=== PATIENT | male | born 1970 | race African-American/Black ===

== ENCOUNTER 2021-02-03 07:01 | Emergency (ER) | payer MEDICAID ==
[~2021-02-03] VITALS: Ht 170.2 cm; Wt 75.0 kg
[~2021-02-03 07:01] MED LIST: ALPR0.5T PO
[2021-02-03] MEDS ORDERED: SODIUM CHLORIDE 0.9% 1,000 ML IV ONE (08:45)
[2021-02-03 09:18] LABS: CHLORIDE 108 mEq/L (98-107)
[2021-02-03 09:22] LABS: HEMATOCRIT. 46.2 % (42.0-52.0); HEMOGLOBIN. 15.7 g/dL (14.0-18.0); MEAN CORPUSCULAR HEMOGLOBIN 30.6 pg (28.0-32.0); MEAN PLATELET VOLUME 10.1 fl (7.4-10.4); PLATELET 306 x1000/uL (130-400); RED BLOOD CELL COUNT 5.13 mill/uL (4.7-6.1); RED CELL DISTRIBUTION WIDTH 13.5 % (11.6-14.6)
[2021-02-03 09:23] LABS: ETHANOL BLOOD < 10 mg/dL
[2021-02-03 10:15] LABS: *BARBITURATES SCREEN URINE NEGATIVE (NEGATIVE)
[2021-02-03 10:16] LABS: *AMPHETAMINES SCREEN URINE NEGATIVE (NEGATIVE); *BENZODIAZEPINES SCREEN URINE NEGATIVE (NEGATIVE); *COCAINE SCREEN URINE NEGATIVE (NEGATIVE); CANNABINOID URINE SCREEN NEGATIVE (NEGATIVE); METHADONE URINE SCREEN NEGATIVE (NEGATIVE); OPIATES URINE SCREEN NEGATIVE (NEGATIVE); PHENCYCLIDINE URINE SCREEN NEGATIVE (NEGATIVE)
[2021-02-03 10:22] LABS: PLATELET ESTIMATE NORMAL
[2021-02-03] MEDS ORDERED: ONDANSETRON HCL 4MG/2ML INJ IV ONE (10:45)
[2021-02-03] MEDS ORDERED: METOPROLOL TARTRATE 50MG TABLET PO ONE (13:45)
[2021-02-03 14:20] VITALS: BP 133/82
== END 2021-02-03 14:40 | disposition home or self-care (01) ==
LOC: ER 07:43
DX: R55 Syncope and collapse (principal); E86.0 Dehydration; F10.239 Alcohol dependence with withdrawal, unspecified; F10.229 Alcohol dependence with intoxication, unspecified; Y90.0 Blood alcohol level of less than 20 mg/100 ml
CPT/HCPCS: 36415; 80048; 80305; 80320; 82962; 85025; 93005; 96361; 96374; 99285; J2405; J7030; G0480

== ENCOUNTER 2021-02-06 10:46 | Inpatient (IN) | payer MEDICAID ==
[~2021-02-06] VITALS: Ht 167.6 cm; Wt 78.9 kg
[2021-02-06] MEDS ORDERED: LEVETIRACETAM 1000MG PREMIX 100 ML IV ONE (11:45)
[2021-02-06] MEDS ORDERED: LORAZEPAM 2MG/ML CPJ IV ONE (11:45)
[2021-02-06 11:51] LABS: HEMATOCRIT. 47.8 % (42.0-52.0); HEMOGLOBIN. 15.9 g/dL (14.0-18.0); MEAN CORPUSCULAR HEMOGLOBIN 30.3 pg (28.0-32.0); MEAN CORPUSCULAR VOLUME 91.3 fL (80.0-94.0); MEAN PLATELET VOLUME 9.3 fl (7.4-10.4); PLATELET 318 x1000/uL (130-400); RED BLOOD CELL COUNT 5.24 mill/uL (4.7-6.1); RED CELL DISTRIBUTION WIDTH 13.6 % (11.6-14.6)
[2021-02-06 11:54] LABS: CHLORIDE 102 mEq/L (98-107)
[2021-02-06 12:00] LABS: ETHANOL BLOOD < 10 mg/dL
[2021-02-06 12:30] LABS: PLATELET ESTIMATE NORMAL
[2021-02-06] MEDS ORDERED: GUAIFENESIN 200MG/10ML SUGAR FREE UDC PO PRN (16:15)
[2021-02-06] MEDS ORDERED: HYDRALAZINE 20MG/ML VIAL IV PRN (16:15)
[2021-02-06] MEDS ORDERED: MAGNESIUM/ALUMINUM HYDROXIDE/SIMETHICONE 30ML UDC PO PRN (16:15)
[2021-02-06] MEDS ORDERED: CLONIDINE 0.1MG TABLET PO PRN (16:15)
[2021-02-06] MEDS ORDERED: DOCUSATE SODIUM 100MG CAPSULE PO PRN (16:15)
[2021-02-06] MEDS ORDERED: DIPHENHYDRAMINE 50MG/ML VIAL IV PRN (16:15)
[2021-02-06] MEDS ORDERED: ACETAMINOPHEN 325MG TABLET PO PRN (16:15)
[2021-02-06] MEDS ORDERED: LORAZEPAM 2MG/ML CPJ IV PRN (16:15)
[2021-02-06] MEDS ORDERED: MORPHINE SULFATE 2 MG/ML CPJ (NOT FOR IM USE) IV PRN (16:15)
[2021-02-06] MEDS ORDERED: IPRATROPIUM/ALBUTEROL 0.5-3(2.5)MG/3ML NEB HHN PRN (16:15)
[2021-02-06 16:19] LABS: CLARITY URINE CLEAR (CLEAR); COLOR URINE YELLOW (YELLOW); KETONES URINE TRACE (NEGATIVE); LEUKOCYTE ESTERASE URINE NEGATIVE (NEGATIVE); NITRITE URINE NEGATIVE (NEGATIVE); OCCULT BLOOD URINE TRACE (NEGATIVE); PH URINE 5.5 (4.5-8.0); PROTEIN URINE TRACE (NEGATIVE); SPECIFIC GRAVITY URINE 1.012 (1.005-1.030); UROBILINOGEN URINE 0.2 E.U./dL (0.2-1.0)
[2021-02-06] MEDS ORDERED: NALOXONE HCL 0.4MG/ML VIAL IV PRN (16:30)
[2021-02-06 16:42] LABS: *AMPHETAMINES SCREEN URINE NEGATIVE (NEGATIVE); *BARBITURATES SCREEN URINE NEGATIVE (NEGATIVE); *BENZODIAZEPINES SCREEN URINE NEGATIVE (NEGATIVE); *COCAINE SCREEN URINE NEGATIVE (NEGATIVE); METHADONE URINE SCREEN NEGATIVE (NEGATIVE); OPIATES URINE SCREEN NEGATIVE (NEGATIVE); PHENCYCLIDINE URINE SCREEN NEGATIVE (NEGATIVE)
[2021-02-06 16:43] LABS: CANNABINOID URINE SCREEN NEGATIVE (NEGATIVE)
[2021-02-06] MEDS: DEXT 5%/0.45% NACL 1000ML 1,000 ML IV SCH (17:42)
[2021-02-06] MEDS ORDERED: POTASSIUM CHLORIDE 20MEQ TABLET SR PO ONE (19:15)
[2021-02-06] MEDS ORDERED: KCL 20MEQ/100ML PREMIX 100 ML IV ONE (19:30)
[2021-02-06] MEDS: LEVETIRACETAM 500MG PREMIX 100 ML IV SCH (20:20)
[2021-02-06] MEDS: ONDANSETRON HCL 4MG/2ML INJ IV PRN (21:32)
[2021-02-06] MEDS: SODIUM CHLORIDE 0.9% INJ 3ML FLUSH IVF SCH (22:33)
[2021-02-07 04:52] LABS: BASOPHILS % 0.3 % (0.0-2.0); EOSINOPHILS % 0.2 % (0.0-5.0); HEMATOCRIT. 49.6 % (42.0-52.0); HEMOGLOBIN. 16.7 g/dL (14.0-18.0); LYMPHOCYTES % 10.8 % (20.0-50.0); MEAN CORPUSCULAR HEMOGLOBIN 30.2 pg (28.0-32.0); MEAN CORPUSCULAR VOLUME 89.5 fL (80.0-94.0); MEAN PLATELET VOLUME 9.9 fl (7.4-10.4); MONOCYTES % 8.5 % (2.0-8.0); NEUTROPHILS % 80.2 % (40.0-76.0); PLATELET 263 x1000/uL (130-400); RED BLOOD CELL COUNT 5.55 mill/uL (4.7-6.1)
[2021-02-07 04:57] LABS: CHLORIDE 104 mEq/L (98-107)
[2021-02-07] MEDS: SODIUM CHLORIDE 0.9% INJ 3ML FLUSH IVF SCH ×3 (06:20→22:00)
[2021-02-07] MEDS: DEXT 5%/0.45% NACL 1000ML 1,000 ML IV SCH (09:51)
[2021-02-07] MEDS: LEVETIRACETAM 500MG PREMIX 100 ML IV SCH ×2 (09:51→20:36)
[2021-02-07] MEDS: POLYVINYL ALCOHOL OPHTH DROPS 15ML RIGHTEYE SCH ×2 (12:47)
[2021-02-07 14:59] VITALS: BP 142/86
[2021-02-07 16:12] VITALS: BP 142/86
[2021-02-07] MEDS ORDERED: FAMO40TA7 PO (16:43)
[2021-02-07] MEDS ORDERED: LOPE2CAP PO (16:43)
[2021-02-07] MEDS ORDERED: MECL-159 PO (16:43)
[2021-02-07] MEDS ORDERED: AMLO5TAB4 PO (16:43)
[2021-02-07] MEDS ORDERED: MULT-1146 PO (16:43)
[2021-02-07] MEDS ORDERED: SERT100T PO (16:43)
[2021-02-07] MEDS ORDERED: DIPH25TA23 PO (16:43)
[2021-02-07] MEDS ORDERED: PRAV40TA58 PO (16:43)
[2021-02-07 20:00] VITALS: BP 141/89
[2021-02-08] VITALS: BP 128/69
[2021-02-08] MEDS: SODIUM CHLORIDE 0.9% INJ 3ML FLUSH IVF SCH ×4 (02:00→21:07)
[2021-02-08] MEDS: DEXT 5%/0.45% NACL 1000ML 1,000 ML IV SCH ×2 (02:01→21:08)
[2021-02-08 04:29] VITALS: BP 138/69
[2021-02-08] MEDS: POLYVINYL ALCOHOL OPHTH DROPS 15ML RIGHTEYE SCH ×6 (06:00→23:59)
[2021-02-08 06:41] LABS: CHLORIDE 102 mEq/L (98-107)
[2021-02-08 06:46] LABS: BASOPHILS % 0.2 % (0.0-2.0); EOSINOPHILS % 0.3 % (0.0-5.0); HEMATOCRIT. 45.8 % (42.0-52.0); HEMOGLOBIN. 15.5 g/dL (14.0-18.0); LYMPHOCYTES % 9.1 % (20.0-50.0); MEAN CORPUSCULAR HEMOGLOBIN 30.7 pg (28.0-32.0); MEAN CORPUSCULAR VOLUME 91.1 fL (80.0-94.0); MEAN PLATELET VOLUME 10.1 fl (7.4-10.4); MONOCYTES % 9.5 % (2.0-8.0); NEUTROPHILS % 80.9 % (40.0-76.0); PLATELET 273 x1000/uL (130-400); RED BLOOD CELL COUNT 5.03 mill/uL (4.7-6.1); RED CELL DISTRIBUTION WIDTH 13.6 % (11.6-14.6)
[2021-02-08] MEDS: LEVETIRACETAM 500MG PREMIX 100 ML IV SCH (09:46)
[2021-02-08 12:00] VITALS: BP 127/79
[2021-02-08] MEDS: HYDROCODONE/ACETAMINOPHEN 5/325MG TABLET PO PRN (15:52)
[2021-02-08 16:00] VITALS: BP 122/85
[2021-02-08 20:00] VITALS: BP 116/69
[2021-02-08] MEDS: LEVETIRACETAM 500MG TABLET PO SCH (21:07)
[2021-02-09] VITALS: BP 112/75
[2021-02-09] MEDS: ONDANSETRON HCL 4MG/2ML INJ IV PRN ×2 (03:28→13:54)
[2021-02-09 04:00] VITALS: BP 131/90
[2021-02-09] MEDS: POLYVINYL ALCOHOL OPHTH DROPS 15ML RIGHTEYE SCH ×2 (05:15→12:42)
[2021-02-09] MEDS: SODIUM CHLORIDE 0.9% INJ 3ML FLUSH IVF SCH ×2 (05:16→13:54)
[2021-02-09 06:37] LABS: BASOPHILS % 0.2 % (0.0-2.0); EOSINOPHILS % 0.8 % (0.0-5.0); HEMATOCRIT. 42.8 % (42.0-52.0); HEMOGLOBIN. 14.3 g/dL (14.0-18.0); LYMPHOCYTES % 14.2 % (20.0-50.0); MEAN CORPUSCULAR HEMOGLOBIN 30.3 pg (28.0-32.0); MEAN CORPUSCULAR VOLUME 90.3 fL (80.0-94.0); MONOCYTES % 8.8 % (2.0-8.0); PLATELET 256 x1000/uL (130-400); RED BLOOD CELL COUNT 4.74 mill/uL (4.7-6.1); RED CELL DISTRIBUTION WIDTH 13.8 % (11.6-14.6)
[2021-02-09 07:35] LABS: CHLORIDE 105 mEq/L (98-107)
[2021-02-09 08:00] VITALS: BP 115/51
[2021-02-09] MEDS: HYDROCODONE/ACETAMINOPHEN 5/325MG TABLET PO PRN ×2 (08:51→12:41)
[2021-02-09] MEDS: LEVETIRACETAM 500MG TABLET PO SCH (08:51)
[2021-02-09] MEDS: DEXT 5%/0.45% NACL 1000ML 1,000 ML IV SCH (10:55)
[2021-02-09 12:00] VITALS: BP 113/71
[2021-02-09 13:19] VITALS: BP 113/71
[2021-02-09 13:37] VITALS: BP 113/71
== END 2021-02-09 16:33 | disposition home or self-care (01) | DRG 53 ==
LOC: ER 10:46 → MICUSO 15:52 → EDBEDREQSVC 19:25 → 6EST 02-07 07:14 → MICUSO 02-07 08:28 → 6WST 02-07 13:12
PROVIDERS: ADMIT Internal Medicine; ATTEND Internal Medicine
DX: G40.89 Other seizures (principal); R65.10 Systemic inflammatory response syndrome (SIRS) of non-infectious origin without acute organ dysfunction; K76.0 Fatty (change of) liver, not elsewhere classified; E87.6 Hypokalemia; F79 Unspecified intellectual disabilities; H54.62 Unqualified visual loss, left eye, normal vision right eye; R10.9 Unspecified abdominal pain
CPT/HCPCS: 36415; 71045; 76700; 80048; 80053; 80305; 80320; 81003; 82962; 84443; 85025; 93005; 93970; 99285; J1953; J2060; J2405; J3480; G0480